=== PATIENT | female | born 2000 | race African-American/Black ===

== ENCOUNTER 2023-10-25 18:45 | Emergency (ER) | payer BC, SELFPAY ==
[2023-10-25 18:55] VITALS: BP 127/88; PULSE 120; RESP 15; TEMP 37; O2SAT 98
[2023-10-25 19:57] LABS: Bilirubin Negative (Negative); Blood Negative (Negative); Clarity Clear (Clear); Glucose Negative (Negative); Ketones Negative (Negative); Leukocyte Esterase Negative (Negative); Nitrite Negative (Negative); Urobilinogen 0.2 mg/dL (Up to 0.2); pH 5.5 (5-8)
[2023-10-25 20:17] LABS: *AMPHETAMINES SCREEN URINE Negative (Negative); *BARBITURATES SCREEN URINE Negative (Negative); *BENZODIAZEPINES SCREEN URINE Negative (Negative); Cannabinoids THC Negative (Negative); Cocaine Screen,Urine Negative (Negative); METHADONE URINE SCREEN Negative (Negative); OPIATES URINE SCREEN Negative (Negative)
[2023-10-25 20:23] LABS: Tricyclic Antidepressants Negative (Negative)
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
--- NOTE | 2023-10-26 08:04 | PDOC.MHCN_ITS ---
Date of service: 10/25/23 Time of Service: 20:17 PHQ-9 Over the last 2 weeks, how often have you been bothered by any of the following problems? 1. Little interest or pleasure in doing things: nearly every day 2. Feeling down, depressed, or hopeless: several days 3. Trouble falling or staying asleep, or sleeping too much: nearly every day 4. Feeling tired or having little energy: nearly every day 5. Poor appetite or overeating: nearly every day 6. Feeling bad about yourself - or that you are a failure or have let yourself and your family down: nearly every day 7. Trouble concentrating on things, such as reading the newspaper or watching television: nearly every day 8. Moving or speaking so slowly that other people could have noticed? - Or the opposite - being so fidgety or restless that you have been moving around a lot more than usual: not at all 9. Thoughts that you would be better off or of hurting yourself in some way: several days Total score: 20 If you checked off any problems, how difficult have these problems made it for you to do your work, take care of things at home, or get along with other people?: somewhat difficult Source: Developed by Drs. Jose Manuel Haas, Zoila Triplett, Bladimir Bateman and colleagues, with an educational jean pierre from [employer]. Suicide Severity Rate CSSRS Have you wished you were or wished you could go to sleep and not wake up?: Yes Have you actually had any thoughts of killing yourself?: Yes CSSRS2 Have you been thinking about how you might do this?: Yes Have you had these thoughts and had some intention of acting on them?: Yes Have you started to work out or worked out the details of how to kill yourself? Do you intend to carry out this plan?: Yes CSSRS3 Have you ever done anything, started to do anything or prepared to do anything to end your life?: No CSSRS4 Was this within the past three months?: No Screening Score Total Score: 4 Screening: Positive Mental Health Emergency Note Release [facility] release signed:: Yes Reason for Visit In the last 2 weeks has the pt presented for ES prior to today?: No Non Suicidal Self Injury Current: No Safety Risk/Harm to Self or Others Current Ideation to Harm Self or Others: No Asssessment/Mental Status Appearance: Unremarkable Attitude: Cooperative and Passive Behavior: Unremarkable Speech: Soft and Hesitant Affect: Cogruent with mood Mood: Sad and Depressed Thought process: Unremarkable Hallucinations: No and No evidence Delusions: No and No evidence Attention: Unremarkable Perception: Not impaired Orientation: Fully orientated Memory: Intact Insight: Fair Judgement: Fair Neurovegetative Symptoms Sleep: No change (distorted ) Appetitie: Disordered Interests: Decrease Energy: Decrease Libido: Not applicable Substance Use: ETOH dependence Have you used substances in the last 7 days?: yes, Alcohol everyday Impression Client was brought into [facility] due to their client's parents concerns for the clients mental health. Client was screened and assessed in person. Client repo rted taht she has always struggled with depression and vague si. Client has never attempted to end her life by suicide. Client reported that she uses alcohol everyday. Client was suggested to get into contact with [facility] to talk about alcohol abuse. Client reported no NSSI. Client reported a strong support system of her family. Client is looking to be put on mediations for her depression. CLient currently sees a therapist every week, and will be seeing her again this week due to current mental health. Client reported disrupted sleep and inconsistent eating patterns. Client reported no access to means, all possible means at home being locked up. Plan/Disposition Recommended Disposition: [facility] Services [facility] Services: Other (Psychiatry ), Therapy and Med management. Plan: Client was safety planned home with the intent to see PCP and talk about medications for depression. Client has a second appointment with therapist this week for additional support. CLient is still interested in psychiatry through the agency so referral will be placed.? Reports/communication Outcome discussed with: ED/Personnel
== END 2023-10-25 20:51 | disposition home or self-care (01) ==
LOC: ER 20:49
PROVIDERS: Emergency Provider Emergency Medicine
DX: F32.A Depression, unspecified (principal); R45.89 Other symptoms and signs involving emotional state
CPT/HCPCS: 00123; 80307; 81025; 96127; 99283; 81003